=== PATIENT | male | born 1955 | race Caucasian/White ===

== ENCOUNTER 2019-11-20 15:04 | Outpatient (CLI) | payer BC, SELFPAY ==
--- NOTE | 2019-11-20 15:05 | ECG_ITS ---
Measurements Intervals [place] Rate: 76 P: 5 ME: 158 QRS: -6 QRSD: 89 T: 13 QT: 348 QTc: 394 Interpretive Statements SINUS RHYTHM VOLTAGE CRITERIA FOR LVH BASELINE ARTIFACT- I, II, III, AVR, AVL, AVF BORDERLINE ECG Electronically Signed On 11-20-2019 15:26:04 TURN OUT by Ge Mendez D.O.
[2019-11-20 15:32] LABS: Blood Urea Nitrogen 12 mg/dL (9-20); Calcium 8.8 mg/dL (8.4-10.2); Carbon Dioxide 27 mmol/L (22-30); Chloride 102 mmol/L (98-107); Estimated Glomerular Filt Rate > 60; Glucose 146 mg/dL (75-110); Potassium 3.8 mmol/L (3.4-5.0); Sodium 142 mmol/L (137-145)
== END 2019-11-20 15:05 | disposition home or self-care (01) ==
PROVIDERS: Anesthesiology; PCP Family Medicine; Visit Provider Urology
DX: Z51.81 Encounter for therapeutic drug level monitoring (principal); I10 Essential (primary) hypertension
CPT/HCPCS: 36415; 80048; 93005

== ENCOUNTER 2019-11-28 02:15 | Day surgery (SDC) | payer BC, SELFPAY ==
[2019-11-15 12:54] VITALS: BMI 40.8
--- NOTE | 2019-11-27 13:46 | WPDANESEPPF ---
Anes - Initial Pre Proc Eval Procedure: Operation Date: 11/28/19 07:30 Proposed Procedures p Right Hydrocelectomy - Scott Jones MD Date/Time: 11/27/19 13:46 Surgeon: Scott Jones MD Pre Op Diagnosis: Right Hydrocele Patient Data Age: 64 Gender: M Height: 1.78 m Weight: 129.27 kg Allergies Allergy/AdvReac Type Severity Reaction Status Date / Time NSAIDS (Non-Steroidal AdvReac Unknown ULCER Verified 11/27/19 15:43 Anti-Inflamma Home Medications Medication Instructions Recorded Confirmed Type ramipril 10 mg capsule 10 mg PO DAILY 10/29/19 11/28/19 History aspirin 81 mg tablet,delayed 81 mg PO DAILY 11/08/19 11/28/19 History release furosemide 20 mg tablet 20 mg PO DIRECTED PRN 11/08/19 11/28/19 History tamsulosin 0.4 mg capsule 0.4 mg PO DAILY 11/08/19 11/28/19 History calcium carbonate-vitamin D3 1 tablet PO DAILY 11/15/19 11/28/19 History [Calcium 600 + D(3)] finasteride 5 mg PO DAILY 11/15/19 11/28/19 History ECG: Date of Service: 11/20/19 Procedure(s): CA 12 lead EKG Accession Number(s): [id number] cc: ~ Measurements Intervals [place] Rate: 76 P: 5 TN: 158 QRS: -6 QRSD: 89 T: 13 QT: 348 QTc: 394 Interpretive Statements SINUS RHYTHM VOLTAGE CRITERIA FOR LVH BASELINE ARTIFACT- I, II, III, AVR, AVL, AVF BORDERLINE ECG Electronically Signed On 11-20-2019 15:26:04 CUT IN STATION OPERATOR by Ge Mendez D.O. Dictated By: Ge Mendez DO 11/20/19 1531 Patient hx anesthesia problems: none Family hx anesthesia problems: none PMFSH Past Medical History Medical History (Updated 11/27/19 @ 16:46 by Dalton Figueroa MD) Essential (primary) hypertension Fatty liver IFG (impaired fasting glucose) Mild intermittent asthma without complication Mixed hyperlipidemia Morbid obesity with BMI of 40.0-44.9, adult Multinodular goiter GOGO on CPAP Social History Social History (Updated 11/27/19 @ 15:45 by Lee Ann Sofia) Smoking packs per day: 1 Smoking cigarettes per day: 20.0 Years smoked: 6 Smoking pack-years: 6.00 Smoking status: Former smoker Tobacco type: cigarettes Second hand tobacco smoke exposure: No Smoking end date: 09/25/76 Alcohol intake: never Substance use: never Substance use type: does not use Gender identity (if verbalized by the patient): Male Anes - Eval Final PreProcedure Day of Procedure 11/27/19 13:46 Patient weight: morbidly obese Heart: regular rate and rhythm Lungs: clear to auscultation and normal air movement Airway: Mallampati scale class II Neurological: alert and oriented Last oral intake: >/= 8 hours ASA classification: III Emergent: no Anesthetic plan: proceed Anesthesia type and monitoring: general LMA Informed Consent: The patient's anesthetic plan and its attendant risks and benefits were discussed with the patient/family/POA. Questions were solicited and answers provided to the satisfaction of the patient/family/POA.
[2019-11-28] VITALS (7 sets, daily range): BP systolic 150–172; BP diastolic 71–84; PULSE 86–116; RESP 16–20; TEMP 36.1; O2SAT 96–98
[2019-11-28] MEDS: LACTATED RINGERS 1,000 ML 30 ML IV CONT (06:35)
--- NOTE | 2019-11-28 06:36 | WPDHPUPDATE1 ---
History and Physical Update Update Date/Time: 11/28/19 06:36 History and Physical has been reviewed, including an updated exam of the patient. There are NO changes in the patient's condition. Risks, benefits, and alternatives have been discussed and questions answered. Patient agrees to proceed with procedure.
[2019-11-28] MEDS: ceFAZolin 3 GM/D5W 100 ML 100 ML IVPB (07:20)
[2019-11-28] MEDS: LIDO 1%/EPINEPHRINE 1:100,000 20 ML VIAL 10 ML INFILTRATE (07:45)
--- NOTE | 2019-11-28 08:00 | PM.PROC ---
Procedure Note - Detailed Date of procedure: 11/28/19 Pre-op diagnosis: Right Hydrocele Post-op diagnosis: same Procedure performed: Right hydrocelectomy Description of procedure: The patient was brought to the operative suite where he was prepped and draped in routine sterile fashion while in a supine position after the uneventful induction of a general LMA anesthetic. An incision was made in the median raphe of the scrotum and dissection was carried into the right tunica vaginalis. Clear, straw-colored fluid was drained. The testicle was examined and found to be both visibly and palpably normal. The tunica was everted in a bottle-neck fashion using a running 4-0 chromic. The testicle was restore returned to an orthotopic positioned. The dartos muscle was closed with a running 4-0 chromic and the skin was likewise closed with a running 4-0 chromic. Estimated blood loss throughout this procedure was 3cc . Patient tolerated the procedure well and was taken to the recovery room in good condition. Anesthesia: GLMA Surgeon: Scott Jones MD Grades 1 Thru 5 Teacher: JUANITA Garcia Estimated blood loss (mL): 3 Drains: No Packing: No Pathology: none sent Complications: No immediate complications Condition: stable Disposition: PACU
== END 2019-11-28 09:16 | disposition home or self-care (01) ==
PROVIDERS: PCP Family Medicine; Visit Provider Urology
PROC: (CPT 55040; principal; 2019-11-28 07:30)
DX: N43.2 Other hydrocele (principal); I10 Essential (primary) hypertension; E78.2 Mixed hyperlipidemia; G47.33 Obstructive sleep apnea (adult) (pediatric); K76.0 Fatty (change of) liver, not elsewhere classified; J45.20 Mild intermittent asthma, uncomplicated; E04.2 Nontoxic multinodular goiter; E66.01 Morbid (severe) obesity due to excess calories; Z68.39 Body mass index [BMI] 39.0-39.9, adult; Z87.891 Personal history of nicotine dependence
CPT/HCPCS: 55060; A9270; J0690; J1100; J2250; J2370; J2405; J2704; J3010; J7120

== ENCOUNTER 2022-09-14 07:50 | Outpatient (CLI) | payer MEDICARE, OTHER, SELFPAY ==
--- NOTE | ~2022-09-14 | US_ITS ---
Ultrasound of the abdominal aorta CLINICAL HISTORY: Cardiovascular disorder, screening for aneurysm, hypertension TECHNIQUE: Transabdominal sonographic imaging of the abdominal aorta was performed. FINDINGS: No evidence for abdominal aortic aneurysm. Proximal abdominal aorta measures 2.6 cm in exte nt transverse diameter. Mid abdominal aorta measures 2.2 cm in maximum transverse diameter. Distal ab dominal aorta measures 1.8 cm in maximum transverse diameter. Aortic bifurcation unremarkable. IMPRESSION: No evidence of abdominal aortic aneurysm. Reviewed, dictated and finalized at location M. TESTER
--- NOTE | ~2022-09-14 | US_ITS ---
Thyroid ultrasound. Clinical History: Multinodular goiter, nontoxic Findings: Real-time sonography of the thyroid gland was performed. The right lobe measures 5.6 x 2.2 x 2.9 cm. The left lobe measures 4.7 x 1.8 x 1.6 cm. The isthmus is 5 mm in AP diameter. There is a 1.1 x 0.8 x 0.9 cm probably densely calcified shadowing nodule at the right mid to upper p ole. There is a 1.6 x 1.0 x 1.4 cm mixed solid and cystic nodule at the right mid to lower pole. Ther e is a 1.9 x 1.7 x 1.7 cm solid, somewhat heterogeneous nodule at the posterior aspect of the right m idpole. There is a 1.9 x 0.9 x 1.2 cm solid, somewhat heterogeneous nodule at the left mid to upper pole. The re is an additional 1.1 x 0.9 x 1.3 cm solid, heterogeneous nodule at the left lower pole. Impression: Multiple thyroid nodules, as detailed above. The largest nodules bilaterally (measuring 1.9 cm in max imum diameter each) are moderately suspicious (TR-4), and given size, FNA of these 2 nodules is recom mended. Reviewed, dictated and finalized at location M. ER OPERATOR Impression: Multiple thyroid nodules, as detailed above. The largest nodules bilaterally (m easuring 1.9 cm in maximum diameter each) are moderately suspicious (TR-4), and given size, FNA of these 2 nodules is recommended.
== END 2022-09-14 07:51 | disposition home or self-care (01) ==
PROVIDERS: PCP Family Medicine; Visit Provider Family Medicine
DX: Z13.6 Encounter for screening for cardiovascular disorders (principal); E04.2 Nontoxic multinodular goiter
CPT/HCPCS: 76536; 76706

== ENCOUNTER → 2023-05-11 08:07 | Outpatient (CLI) | payer MEDICARE, SELFPAY ==
--- NOTE | ~2023-05-11 | XR_ITS ---
EXAMINATION: XR_KNEE1-2VLT_CR, XR_KNEE1-2VRT_CR DATE: 05/11/2023 08:36 INDICATION: Bilateral knee pain TECHNIQUE: 1. Weight bearing anteroposterior and lateral views of the left knee were obtained. 2. Weight bearing anteroposterior and lateral views of the right knee were obtained. COMPARISON: None. FINDINGS: No fracture of either knee. Severe joint space narrowing at the lateral compartment of the left knee resulting in 14 degree left-sided genu valgus. There is moderate joint space narrowing at the medial compartment of the right knee resulting in 3 degree right-sided genu varus. Small marginal osteophyte s at the medial compartment left knee and lateral compartment of the right knee. Mild to moderate elmira nt space narrowing at the bilateral patellofemoral compartments with small marginal osteophytes in th e right and moderate-sized marginal osteophytes on the left. Small bilateral knee joint effusions. So ft tissues are otherwise unremarkable. IMPRESSION: 1. Tricompartmental osteoarthritis of both knees, severe at the lateral compartment of the left knee and moderate severity at the medial compartment of the right knee. Reviewed, dictated and finalized at location A. IMPRESSION: 1. Tricompartmental osteoarthritis of both knees, severe at the lateral compart ment of the left knee and moderate severity at the medial compartment of the ri ght knee.
== END ==
PROVIDERS: PCP Family Medicine; Visit Provider Family Medicine
DX: M17.0 Bilateral primary osteoarthritis of knee (principal)
CPT/HCPCS: 73560

== ENCOUNTER 2023-10-04 07:57 | Outpatient (CLI) | payer MEDICARE, SELFPAY ==
[2023-10-04 09:39] LABS: Urine Cotinine NEGATIVE
[2023-10-04 09:43] LABS: Partial Thromboplastin Time 33.5 SECONDS (22.3-36.8); Prothrombin Time 13.3 Seconds (11.1-14.7)
[2023-10-04 09:45] LABS: Hemoglobin A1C 5.9 % (<5.7)
== END 2023-10-04 07:58 | disposition home or self-care (01) ==
LOC: ANHSURGERY 08:01
PROVIDERS: PCP Family Medicine; Visit Provider Orthopaedic Surgery
DX: M17.11 Unilateral primary osteoarthritis, right knee (principal); Z01.818 Encounter for other preprocedural examination
CPT/HCPCS: 80307; 82040; 83036; 85610; 85730; 87081

== ENCOUNTER 2023-10-18 03:49 | Day surgery (SDC) | payer MEDICARE, SELFPAY ==
[2023-10-04 08:07] VITALS: BMI 39.2
--- NOTE | 2023-10-04 08:41 | PC.NURSE ---
Report to the Outpatient Waiting Room, entrance under the green pavilion located off [facility], at time __0830 on date __10/18/23 . Planned Procedure Time: __1030 . Time changes happen often and if your time is changed the preop area will call you the afternoon before. - You and your visitor will be asked to self-screen and do not enter if you have any COVID symptoms. - A mask is optional within the hospital at this time. Patients may have clear liquids (water, carbonated beverages, clear teas, apple juice) until 3 hours prior to surgery(7:30 AM) with a maximum of 20 ounces. - No food from midnight until time of surgery - Infants may have breast milk until 4 hours before surgery, formula 6 hours prior to surgery. - Children will be allowed to drink immediately following surgery. If applicable, please bring a bottle or sippy cup to assist with drinking. Juice, water, soda, and popsicles are readily available. For infants on formula, please bring formula the day of surgery. Pacifiers are allowed. Take the following medications with a SIP of water the morning of surgery: ____CARVEDILOL DO NOT STOP ANY OF YOUR OTHER PRESCRIPTION MEDICATIONS PRIOR TO SURGERY ?EXCEPT THE FOLLOWING Medications to discontinue per physician PT STATES HOLD ASPIRIN AND ALEVE 7 DAYS PRE OP PER DR SAMUEL_.LAST DOSE 10/10/23 MAY TAKE TYLENOL IF NEEDED FOR PAIN. HOLD VITAMINS 3 DAYS PRE OP .LAST DOSE 10/14/23 Please no make-up, nail venezuelan, hairspray, perfume, deodorant, or body powder the day of surgery. No jewelry (including any body piercings) or valuables the day of surgery, leave them at home. Please take a shower or bath the night before, or the morning of, surgery with an antibacterial soap. Wear comfortable, loose fitting clothing. Children are encouraged to wear pajamas. - Jewelry must be removed prior to entering the operating room. Rings and piercings that are not removed may be cut off. - The hospital will not accept responsibility for valuables. - Please leave all valuables, including medications, at home the day of surgery. If you are going home after surgery, a licensed rolloff truck driver must drive you home. - NO public transportation without another adult if you receive anesthesia. - We recommend that an adult stay with you for 24 hours following discharge. - We also recommend that you do not drive, make important decision, drink alcoholic beverages, or take any drugs that were not prescribed by your health care provider for at least 24 hours after your discharge time. For Pediatric surgeries, we recommend two adults accompany the child home. Follow any additional instructions given to you from your surgeon. If you or anyone in your household have experienced Covid symptoms in the past week, please notify your surgeon or the nurse liaison at the phone number below for possible testing. VERBAL AND WRITTEN instructions given to __PATIENT AND SPOUSE CONNIE and asked if any additional questions and then verbalized understanding. Patient advised to call surgeon office or pre surgery nurse liaison [phone] if any additional questions.
[2023-10-04 09:06] VITALS: BP 164/76; PULSE 72; RESP 18; TEMP 36.9; O2SAT 97
--- NOTE | 2023-10-17 13:50 | WPDANESEPPF ---
Anes - Initial Pre Proc Eval Procedure: Operation Date: 10/18/23 10:30 Proposed Procedures p Right Total Knee Arthroplasty - Nimesh Hong MD Date/Time: 10/17/23 13:50 Surgeon: Nimesh Hong MD Pre Op Diagnosis: Rt Knee Djd Patient Data Age: 68 Gender: M Height: 1.78 m Weight: 124.2 kg Last Vital Signs Temp 36.9 C 10/04/23 09:06 Pulse 72 10/04/23 09:06 Resp 18 10/04/23 09:06 BP 164/76 H 10/04/23 09:06 Pulse Ox 97 10/04/23 09:06 O2 Del Method Room Air 10/04/23 09:06 Allergies Allergy/AdvReac Type Severity Reaction Status Date / Time NSAIDS (Non-Steroidal AdvReac Unknown ULCER Verified 10/06/23 09:08 Anti-Inflamma Home Medications Medication Instructions Recorded Confirmed Type aspirin 81 mg tablet,delayed 81 mg PO DAILY 11/08/19 10/18/23 History release calcium carbonate 600 mg-vitamin 1 tablet PO EVERY OTHER DAY 11/15/19 10/18/23 History D3 5 mcg (200 unit) tablet (Calcium 600 + D(3)) ramipril 10 mg capsule 10 mg PO DAILY #90 caps 11/23/22 10/18/23 Rx naproxen sodium 220 mg capsule 220 mg PO PRN PRN Pain 08/21/23 10/18/23 History (Aleve) carvedilol 12.5 mg tablet 12.5 mg PO Q12H #60 tabs 09/07/23 10/18/23 Rx hydrochlorothiazide 25 mg tablet 25 mg PO DAILY 10/04/23 10/18/23 History Patient hx anesthesia problems: none Family hx anesthesia problems: none Results Review: All pre-operative results and documents have been reviewed as part of the pre-operative evaluation. [facility] Past Medical History Medical History (Updated 10/17/23 @ 13:50 by Wade Galloway DO) Asthma Essential (primary) hypertension Fatty liver IFG (impaired fasting glucose) Mild intermittent asthma without complication Mixed hyperlipidemia Morbid obesity with BMI of 40.0-44.9, adult Multinodular goiter Obesity GOGO on CPAP PONV (postoperative nausea and vomiting) Family History Family History Mother Patient's mother is in good health Sibling Patient's sister is in good health Social History Social History Smoking packs per day: 1 Smoking cigarettes per day: 20.0 Years smoked: 4 Smoking pack-years: 4.00 Smoking status: Former smoker Tobacco type: cigarettes Second hand tobacco smoke exposure: No Smoking end date: 09/25/75 Additional smoking assessment comments: DENIES ANY FORM OF TOBACCO USE Alcohol intake: current Drinks per week: 4 Substance use: never Substance use type: does not use Living arrangements: with family Occupation/Education: retired Gender identity (if verbalized by the patient): Male Spiritual care concerns: No Anes - Eval Final PreProcedure Day of Procedure 10/17/23 13:50 Patient weight: obese Heart: regular rate and rhythm Lungs: clear to auscultation Airway: Mallampati scale class III Neurological: alert and oriented Last oral intake: >/= 8 hours ASA classification: III Emergent: no Anesthetic plan: proceed Anesthesia type and monitoring: general LMA and standard monitoring Results Review: All pre-operative results and documents have been reviewed as part of the pre-operative evaluation. Informed Consent: The patient's anesthetic plan and its attendant risks and benefits were discussed with the patient/family/POA. Questions were solicited and answers provided to the satisfaction of the patient/family/POA.
[2023-10-18] VITALS (13 sets, daily range): BP systolic 138–181; BP diastolic 63–103; PULSE 74–94; RESP 12–20; TEMP 35.6–37.4; O2SAT 93–100
--- NOTE | ~2023-10-18 | XR_ITS ---
Right Knee Technique: Portable AP and crosstable lateral views Clinical History: Status post TKR Findings: Patient is status post total knee replacement. Orthopedic hardware alignment appears anatom ic. No hardware complication is evident. Subcutaneous emphysema and swelling is likely postoperative in nature. No acute osseous fracture is seen. Impression: Status post total knee replacement, without evidence of hardware complication. Reviewed, dictated and finalized at location . SERVICE ATTENDANT Impression: Status post total knee replacement, without evidence of hardware complication.
--- NOTE | 2023-10-18 07:16 | WPDHPUPDATE1 ---
History and Physical Update Update Date/Time: 10/18/23 07:16 History and Physical has been reviewed, including an updated exam of the patient. There are NO changes in the patient's condition. Risks, benefits, and alternatives have been discussed and questions answered. Patient agrees to proceed with procedure.
[2023-10-18] MEDS: ACETAMINOPHEN 500 MG TABLET 1000 MG PO (09:00)
[2023-10-18] MEDS: LACTATED RINGERS 1,000 ML 30 ML IV CONT ×2 (09:10→12:39)
[2023-10-18] MEDS: TRANEXAMIC ACID 1,000MG/ISO100 1,000 MG/100 ML BAG 200 MG IVPB (09:54)
--- NOTE | 2023-10-18 10:03 | WPDANESPNB ---
Anes - Peripheral Nerve Block Date/Time: 10/18/23 10:03 I have discussed with the patient/family/POA the placement of a peripheral nerve block for post-operative pain management, including associated risks, benefits, complications, and side effects. Alternative methods of post-operative analgesia were detailed. Questions were solicited and answers provided to the satisfaction of the patient/family/POA. Time-Out: A pre-procedural Time-Out was completed immediately before starting the procedure and confirmed: Patient Identification, Site, Procedure, Patient Position and the Availability of Requisite Equipment. Clinical Indications: Acute post-operative pain management requested by the operative surgeon. Nerve Block Insertion Note Anes-nerve block: adductor canal right Patient position: supine Skin prep: chlorhexidine Needle: 22 gauge, stimulating, insulated echogenic needle. Needle length: 80 mm Technique: ultrasound Injectate: bupivacaine 0.5% with epi 5 mcg/ml (30cc - no epi) Observations: tolerated well Complications: none Procedure start time:: 1007 Procedure end time:: 1011
[2023-10-18] MEDS: SCOPOLAMINE 1 MG PATCH 1 PATCH TRANSDERM (10:06)
[2023-10-18] MEDS: ceFAZolin 2 GM/D5W 50 ML 2 GM/50 ML BAG IVPB ×2 (10:30→17:08)
[2023-10-18] MEDS: GENTAMICIN BONE CEMENT REFOBACIN 1 EACH TOPICAL (11:40)
[2023-10-18] MEDS: TRANEXAMIC ACID 1,000 MG/10 ML AMPUL 1000 MG IV PUSH (11:56)
--- NOTE | 2023-10-18 12:50 | P.OP_ITS ---
Procedure Note - Detailed Date of Procedure 10/18/23 Pre-op Diagnosis Rt Knee Djd Post-op Diagnosis Same Procedure Performed R TKA Surgeon Nimesh Hong MD Anesthesia General Description of Procedure THE RIGHT KNEE WAS PREPPED AND DRAPED IN THE STERILE FASHION. THERE WAS A 10 DEGREE FLEXION CONTRACTURE. A MIDLINE SKIN INCISION WAS MADE. A MEDIAL PARAPATELLAR ARTHROTOMY WAS MADE. THE PATELLA WAS EVERTED. AN INTRAMEDULLARY JOSE G WAS PLACED IN THE FEMUR. A DISTAL FEMORAL CUT WAS MADE IN 5 DEGREES OF ROBERTH KAROL REMOVING APPROXIMATELY 9 MM OF BONE FROM THE DISTAL FEMUR. THE FEMUR WAS SIZED TO 67.5. A 67.5 FEMORAL CUTTING BLOCK WAS PLACED IN 3 DEGREES OF EXTERNAL ROTATION AND IN ALIGNMENT WITH LYNNETTE'S LINE AND THE TRANSEPICONDYLAR AXIS. ANTERIOR POSTERIOR AND CHAMFER CUTS WERE MADE. THE CUTS WERE EXCELLENT. NEXT AN INTRAMEDULLARY CUTTING GUIDE WAS PLACED IN THE TIBIA. A TRANS TIBIAL CUT WAS MADE ALONG THE LONG AXIS OF THE TIBIA. APPROXIMATELY 10 MM OF BONE WAS REMOVED FROM THE HIGH SIDE OF THE TIBIA. THE TIBIA WAS THEN PLANED TO A SMOOTH SURFACE. POSTERIOR FEMORAL OSTEOPHYTES WERE REMOVED FROM THE FEMORAL CONDYLES. A 75 TIBIAL TRIAL WAS PLACED IN ALIGNMENT WITH THE 1/3 MEDIAL ASPECT OF THE TIBIAL TUBERCLE. THEN A 67.5 FEMORAL TRIAL COMPONENT WAS PLACED. BOTH HAD EXCELLENT FITS. EVENTUALLY A 10 MM CR POLYETHYLENE TRIAL COMPONENT WAS PLACED. THE KNEE WAS TAKEN THROUGH A RANGE OF MOTION. THE KNEE CAME OUT TO FULL EXTENSION. THERE WAS NO ABNORMAL TILT TO THE PATELLA. THERE WAS GOOD A/P AND VARUS/VALGUS STABILITY. THERE WAS NO EXCESSIVE ROLL BACK WITH FLEXION. THE TRIAL COMPONENTS WERE REMOVED. THEN A 67.5 FEMORAL COMPONENT AND 75 TIBIAL COMPONENT WITH A 10 CR POLYETHYLENE COMPONENT WERE CEMENTED INTO PLACE. ONCE THE CEMENT WAS HARD THE KNEE WAS TAKEN THROUGH A ROM AGAIN AND FOUND TO BE STABLE WITH NO PATELLA TILT NO EXCESSIVE ROLL BACK WITH FLEXION AND GOOD STABILITY WITH COMPLETE AND FULL EXTENSION. THE KNEE WAS IRRIGATED WITH STERILE BETADINE AND WATER FOR ABOUT 3 MINUTES. THE BLEEDERS WERE CAUTERIZED. THE ARTHROTOMY WAS REPAIRED WITH NUMBER 1 VICRYL. THE SUB CUTANEOUS LAYER WITH 2-0 VICRYL AND THE SKIN WITH CINDY. THE WOUND WAS WASHED AND A STERILE DRESSING WAS APPLIED. PATIENT WAS EXTUBATED. Estimated Blood Loss -100 Pathology None sent Complications No immediate complications Condition Stable Disposition PACU
[2023-10-18] MEDS: fentaNYL CITRATE INJ (*CRX) 100 MCG/2 ML VIAL 25 MCG IV PUSH ×8 (12:59→13:37)
--- NOTE | 2023-10-18 14:15 | PC.NURSE ---
This patient, Cesar Lemus, was admitted to 3 [facility] Surg Room 320-01. Patient/family oriented to hospital policies and general routines including ID bracelet, bed and alarms, visiting hours, pain management, procedures, bathroom and other care routines, personal items, smoking policy, room service/diet, and visiting hours. Information on how to activate the Rapid Response Team has been discussed. Patient/Family are encouraged to report perceived risks to care and to ask questions if they do not understand what they are told or what they should do.
[2023-10-18] MEDS: KETOROLAC 15 MG/ML VIAL (*BKC) IV PUSH ×2 (14:36→17:08)
[2023-10-18] MEDS: ramipriL 5 MG CAPSULE 10 MG PO (14:37)
[2023-10-18] MEDS: oxyCODONE/ACETAMINOPHEN (*CRX) 5-325 MG TABLET 1 TABLET PO ×2 (15:46→20:23)
[2023-10-18] MEDS: carvediloL 12.5 MG TABLET PO (17:06)
[2023-10-18] MEDS: SENNA/DOCUSATE SODIUM TABLET 2 TAB PO (17:06)
[2023-10-18] MEDS: FAMOTIDINE 20 MG TABLET PO (20:22)
[2023-10-18] MEDS: ASPIRIN 325 MG ENTERIC TABLET PO (20:22)
[2023-10-19] VITALS: BP 133/58; PULSE 85; RESP 16; TEMP 36.1; O2SAT 96
[2023-10-19] MEDS: KETOROLAC 15 MG/ML VIAL (*BKC) IV PUSH ×2 (00:14→06:13)
[2023-10-19] MEDS: ceFAZolin 2 GM/D5W 50 ML 2 GM/50 ML BAG IVPB ×2 (02:51→09:11)
[2023-10-19 04:00] VITALS: BP 129/59; PULSE 66; RESP 16; TEMP 36.2; O2SAT 98
[2023-10-19 06:45] LABS: Basophils Percent Auto 0.2 % (0.2-1.2); Eosinophils Percent Auto 0.1 % (0-4.4); Hematocrit 40.8 % (42.0-52.0); Hemoglobin 13.2 g/dL (14.0-18.0); Immature Granulocyte Absolute 0.09 K/mm3 (0.00-0.031); Immature Granulocyte Percent A 0.6 % (0-0.5); Lymphocytes Absolute Auto 1.51 K/mm3 (0.9-3.2); Lymphocytes Percent Auto 9.7 % (18.3-44.2); Mean Corpuscular HGB Conc 32.4 g/dl (32-36); Mean Corpuscular Hemoglobin 28.1 pg (26-34); Mean Corpuscular Volume 86.8 fl (80-100); Mean Platelet Volume 9.9 fl (7.4-10.4); Monocytes Percent Auto 6.4 % (2.6-8.5); Neutrophils Absolute Auto 12.9 K/mm3 (1.3-6.7); Platelet Count Result 254 k/mm3 (150-375); Red Cell Distribution Width 13.6 % (11.5-14.5); White Blood Count 15.6 K/mm3 (4.5-10.0)
[2023-10-19 07:11] LABS: Anion Gap 8 mmol/L (8-16); Blood Urea Nitrogen 21 mg/dL (9-20); Calcium 9.3 mg/dL (8.4-10.2); Carbon Dioxide 24 mmol/L (22-30); Chloride 104 mmol/L (98-107); Estimated CRCL calculation 81 ml/min; Estimated Glomerular Filt Rate > 60; Glucose 152 mg/dL (65-110); Potassium 4.2 mmol/L (3.4-5.0); Sodium 136 mmol/L (137-145)
[2023-10-19 08:00] VITALS: BP 163/61; PULSE 72; RESP 22; TEMP 36.7; O2SAT 97
[2023-10-19] MEDS: ACETAMINOPHEN 500 MG TABLET 1000 MG PO (09:00)
[2023-10-19 09:03] VITALS: PULSE 81
[2023-10-19] MEDS: carvediloL 12.5 MG TABLET PO (09:03)
[2023-10-19] MEDS: FAMOTIDINE 20 MG TABLET PO (09:05)
[2023-10-19] MEDS: ramipriL 5 MG CAPSULE 10 MG PO (09:06)
[2023-10-19] MEDS: SENNA/DOCUSATE SODIUM TABLET 2 TAB PO (09:07)
[2023-10-19] MEDS: ASPIRIN 325 MG ENTERIC TABLET PO (09:07)
[2023-10-19] MEDS: polyethylene glycoL 3350 17 GM POWD.PACK PO (09:07)
--- NOTE | 2023-10-19 09:26 | PM.PNORT ---
Progress Note: A&P Assessment and Plan (1) S/P total knee arthroplasty: Qualifiers: Laterality: right Qualified Code(s): Z96.651 - Presence of right artificial knee joint Code(s): Z96.659 - Presence of unspecified artificial knee joint Status: Acute Assessment and Plan: POD #1 : Right TKA Continue PT/OT. WBAT. Walker. HIGH FALL RISK. Continue pain control. Ice Knee. Protect skin. DVT prophylaxis with Aspirin. SCDs. Incentive Spirometry Use reviewed. Monitor Dressing. Change prior to discharge. Bowel Regimen. Dispo: Home with Home Health pending progress with PT/OT Time Spent With Patient Time: Reviewed history, exam, radiographs and current labs with attending MD and covering surgeon, Dr. Hong, who agrees with current plan as indicated above. No further recommendations from Dr. Hong at this time. Subjective Subjective Date/Time Seen: 10/19/23 09:26 Post Op day: 1 Interval history: POD #1: Right TKA Patient doing very well. Pain well controlled. Working well with PT/OT. Ready for discharge home. Review of Systems Review of Systems: All systems reviewed & are unremarkable except as noted in HPI and below Constitutional: Constitutional: Denies fever(s) and Denies headache(s) ENT: Denies headache(s) Cardiovascular: Cardiovascular: Denies chest pain, Denies diaphoresis, Denies palpitations and Denies dyspnea Respiratory: Respiratory: Denies dyspnea Gastrointestinal: Gastrointestinal: Denies abdominal pain, Denies constipation, Denies nausea and Denies vomiting Genitourinary: Genitourinary: Denies dysuria and Reports nocturia Musculoskeletal: Musculoskeletal: Reports arthralgias (Right Knee ) and Reports joint swelling (Right Knee ) Neurologic: Denies headache(s) Endocrine: Endocrine: Denies palpitations Exam Const: General: comfortable and no acute distress Resp: Effort & Inspection: normal respiratory effort Cardio: Rate: regular rate Rhythm: regular rhythm GI: GI Palp: Yes Soft to palpation, No Tenderness to palpation present (GI) and No Guarding due to palpation present (GI) Skin: General skin exam: wounds noted Wounds: wounds noted Other: Incision c/d/i. No surrounding redness/warmth. No hematoma. Mild ecchymosis. No wound dehiscence Neuro: Cognition (Neuro): normal cognition Other: NV intact aside from block. Moves toes. Sensation intact to light touch. +ankle dorsiflexion/plantarflexion. Extrem: Right lower extremity: normal to inspection, knee Details: tenderness (diffuse, mild ) Location: of the patella, swelling (diffuse, consistent with surgical intervention ), abnormal ROM Details: pain with active ROM during, pain with passive ROM during and with range as follows (limited due to recent surgical intervention ); able to extend lower leg actively and ecchymosis (mild ), lower leg (Negative Allyssa's Sign ) Details: normal to inspection; no erythema and no tenderness, ankle (+ankle dorsiflexion/plantarflexion ) Details: normal to inspection, no edema and normal ROM; no tenderness, no swelling and no ecchymosis and foot Details: normal capillary refill, normal to inspection, vascular exam Details: dorsalis pedis pulse present and motor-sensory exam Details: light-touch normal; no tenderness Left lower extremity: normal to inspection Psych: Mental Status: mental status grossly normal Objective Data Vital Signs Vital Signs: Vital Signs - 24 hr 10/18/23 12:39 10/18/23 12:50 10/18/23 13:05 Temperature 37.4 C Pulse Rate 83 88 80 Respiratory Rate 14 18 12 Blood Pressure 176/103 H 167/83 H 178/83 H Pulse Oximetry 98 97 94 Oxygen Delivery Simple Face Mask Simple Face Mask Simple Face Mask Oxygen Flow Rate 8 8 8 10/18/23 13:20 10/18/23 13:24 10/18/23 13:35 Temperature Pulse Rate 92 94 Respiratory Rate 18 18 Blood Pressure 181/84 H 138/98 H Pulse Oximetry 100 94 94 Oxygen Delivery Simple Face Mask Room Air Room Air
--- NOTE | 2023-10-19 09:30 | PM.DS ---
DS: Admitting Diagnosis Discharge Date 10/19/2022 Admitting Diagnosis Right Knee DJD DS: Discharge Diagnosis Discharge Diagnosis (1) S/P total knee arthroplasty: Qualifiers: Laterality: right Qualified Code(s): Z96.651 - Presence of right artificial knee joint Code(s): Z96.659 - Presence of unspecified artificial knee joint Status: Acute Assessment and Plan: POD #1 : Right TKA Continue PT/OT. WBAT. Walker. HIGH FALL RISK. Continue pain control. Ice Knee. Protect skin. DVT prophylaxis with Aspirin. SCDs. Incentive Spirometry Use reviewed. Monitor Dressing. Change prior to discharge. Bowel Regimen. Dispo: Home with Home Health pending progress with PT/OT DS: Summary Hospital Course Reason for hospitalization: Right TKA Hospital Course: 68 year old male admitted s/p Right TKA for postoperative medical management, pain control and mobilization with PT/OT. Patient progressed well with PT/OT. Pain and vitals remained stable throughout. The patient has been cleared to be discharged home with home health at this time. All discharge care instructions reviewed at depth. New medications reviewed. Follow up planned for 3 weeks in the outpatient orthopedic clinic with Dr. Hong. Dr. Hong in agreement with safe discharge at this time. Status at Discharge Functional status at discharge: uses cane/walker Overall status at discharge: patient is progressing back to baseline Time Spent with Patient Time attestation: Total time spent providing and/or coordinating discharge services: Exam Const: General: comfortable and no acute distress Resp: Effort & Inspection: normal respiratory effort Cardio: Rate: regular rate Rhythm: regular rhythm Skin: General skin exam: wounds noted Wounds: wounds noted Other: Incision c/d/i. No surrounding redness/warmth. No hematoma. Mild ecchymosis. No wound dehiscence Neuro: Cognition (Neuro): normal cognition Other: NV intact aside from block. Moves toes. Sensation intact to light touch. +ankle dorsiflexion/plantarflexion. Extrem: Right lower extremity: normal to inspection, knee Details: tenderness (diffuse, mild ) Location: of the patella, swelling (diffuse, consistent with surgical intervention ), abnormal ROM Details: pain with active ROM during, pain with passive ROM during and with range as follows (limited due to recent surgical intervention ); able to extend lower leg actively and ecchymosis (mild ), lower leg (Negative Allyssa's Sign ) Details: normal to inspection; no erythema and no tenderness, ankle (+ankle dorsiflexion/plantarflexion ) Details: normal to inspection, no edema and normal ROM; no tenderness, no swelling and no ecchymosis and foot Details: normal capillary refill, normal to inspection, vascular exam Details: dorsalis pedis pulse present and motor-sensory exam Details: light-touch normal; no tenderness Left lower extremity: normal to inspection Psych: Mental Status: mental status grossly normal DS: Data Data Completed and Pending Labs on day of discharge: Labs from last 24 hours 10/19/23 10/18/23 06:34 08:55 WBC 15.6 H RBC 4.70 Hgb 13.2 L Hct 40.8 L MCV 86.8 MCH 28.1 MCHC 32.4 RDW 13.6 Plt Count 254 MPV 9.9 Immature Gran % (Auto) 0.6 H Neut % (Auto) 83.0 H Lymph % (Auto) 9.7 L [place] % (Auto) 6.4 Eos % (Auto) 0.1 Baso % (Auto) 0.2 Lymph # (Auto) 1.51 [place] # (Auto) 1.0 H Eos # (Auto) 0.0 Baso # (Auto) 0.0 Abs Immat Gran (auto) 0.09 H Absolute Neuts (auto) 12.9 H Absolute Nucleated RBC 0.0 Nucleated RBC % 0.0 Sodium 136 L Potassium 4.2 Chloride 104 Carbon Dioxide 24 Anion Gap 8 BUN 21 H Creatinine 1.00 Estim Creat Clear Calc 81 Estimated GFR > 60 Glucose 152 H Calcium 9.3 Blood Type O Positive Antibody Screen Negative Discharge Plan Discharge Patient Disposition: Home Health Service Discharge Instructions: [facility]
[2023-10-19 10:28] VITALS: O2SAT 98
== END 2023-10-19 11:25 | disposition home health service (06) ==
LOC: ANHSURGERY 10:08 → ANH3MEDSUR 14:15
PROVIDERS: PCP Family Medicine; Visit Provider Orthopaedic Surgery
PROC: (CPT 27447; principal; 2023-10-18 10:30)
DX: M17.11 Unilateral primary osteoarthritis, right knee (principal); G89.18 Other acute postprocedural pain; I10 Essential (primary) hypertension; E78.2 Mixed hyperlipidemia; G47.33 Obstructive sleep apnea (adult) (pediatric); K76.0 Fatty (change of) liver, not elsewhere classified; Z79.82 Long term (current) use of aspirin; E66.9 Obesity, unspecified; Z68.37 Body mass index [BMI] 37.0-37.9, adult; Z87.891 Personal history of nicotine dependence
CPT/HCPCS: 27447; 64447; 36415; 73560; 80048; 80307; 82040; 83036; 85025; 85610; 85730; 86850; 86900; 86901; 87081; 97110; 97161; 97165; 97530; 97535; A9270; C1713; C1776; J0171; J0690; J1100; J1170; J1200; J1885; J2250; J2270; J2405; J2704; J2795; J3010; J7120

== ENCOUNTER 2023-12-27 14:45 | Outpatient (RCR) | payer MEDICARE, SELFPAY ==
--- NOTE | 2023-11-29 11:43 | PTOPEVAL1 ---
Assessment and note entered by Rogelio Pelayo Evaluation Information Assessment Status Evaluation Diagnosis s/p R TKA Onset 10/18/23 Subjective Information Pt. reports he underwent right TKA on 10/18/23. He had been participating in HH therapy. He reports he was suppose to start OP PT awhile ago, but had recently developed Covid. He reports that he is currently using a cane and has recently returned to driving. He states that he has a constant aching that he rates 2/10 at the right knee. He reports that he enjoys taking a bath, but cannot get down low enough to get into the tub. he reports that he has 1 step at his home and has not had to do multiple stairs. He reports that prior to surgery he was able to complete his own yardwork without complication. He reports that pain will wake him at night. He states that his goal for PT is to be able to walk normal with less pain. Reported Pain Level Pain Score 2: Self Report Assessment PT Clinical Summary Pt. is a 68 year old male 5-6 weeks post right TKA . He presents with notable edema at the right knee, impaired right knee ROM, impaired l.e. strength, impaired gait and functional decline. Continued skilled PT is indicated in order to improve these areas to allow for improved comfort with IADL's and to establish normal gait. Plan of Care Interventions Electrical Stimulation,Gait Training,Hot Pack/Cold Pack,Intermittent Compression,Manual Therapy, Neuro Re-education,Patient/Caregiver Education, Therapeutic Activities,Therapeutic Exercise PT Services Indicated Yes Treatment Frequency and 2x/week x 10 visits Duration These treatments will address the objective and functional deficits as defined above. The patient will be advanced safely and appropriately in order for the patient to progress towards his/her prior level of function. Additional exercises will be introduced and as well as a comprehensive home exercise program upon discharge, if needed, ?to ensure carryover of functional gains achieved in the clinic. This treatment plan has been reviewed and agreement upon by the patient.
--- NOTE | 2023-11-29 11:44 | OPREHPOC ---
Outpatient Therapy Plan of Care This is a Multidisciplinary Plan of Care that may contain components documented by all disciplines (PT, OT, and ST.) PT Problem 1 PT Problem #1 Knowledge Deficit PT Goal 1 Goal Independent with a HEP focusing on strength and mobility baptism Target Visit 2 PT Problem 2 PT Problem #2 Edema PT Goal 1 Goal Reduce right knee joint girth measurements to 43cm indicating decrease in edema Target Visit 6 PT Problem 3 PT Problem #3 Impaired Range of Motion PT Goal 1 Goal Pt. will achieve 0-120 degrees right knee active ROM in order to allow pt. to squat to the floor for functional activities. Target Visit 10 PT Problem 4 PT Problem #4 Impaired Functional Mobil PT Goal 1 Goal Pt. will present with less than 40% limitation on the LEFS indicating improved overall function. Target Visit 10 PT Problem 5 PT Problem #5 Impaired Gait PT Goal 1 Goal Pt. will complete the 6 minute walk test without an AD with equal right and left stance time accumulating a distance of 1000' or greater. Target Visit 10
--- NOTE | 2023-12-27 15:28 | PTOPDC ---
Assessment and note entered by Rogelio Pelayo Evaluation Information Assessment Status Discharge Diagnosis s/p R TKA Onset 10/18/23 Subjective Information Pt. reports that he continues to exercise at home. He is walking without an AD and has returned to driving. he reports that he is able to get out of the bathtub without help. He reports that he would like to be able to kneel, but feels the knee is too pain to kneel at this time. He reports he has no problem with sleeping at night. He states that he will continue with exercise and is ready for discharge. Reported Pain Level Pain Score 1: Self Report Pain Score 2: Self Report Assessment PT Clinical Summary Pt. has met the majority of goals established at the initial evaluation. He is encouraged to continue with his HEP and will be discharged from our care at this time. Plan of Care PT Services Indicated No
== END 2023-12-27 17:08 | disposition home or self-care (01) ==
LOC: ANHPT 14:45
PROVIDERS: PCP Family Medicine; Visit Provider Orthopaedic Surgery
DX: Z47.1 Aftercare following joint replacement surgery (principal); Z96.651 Presence of right artificial knee joint
CPT/HCPCS: 97016; 97110; 97116; 97161; 97530; 97750

== ENCOUNTER 2025-06-16 16:20 | Emergency (ER) | payer MEDICARE, SELFPAY ==
--- NOTE | ~2025-06-16 | XR_ITS ---
XR abdomen/kub 1V 06/16/2025 16:59 Indication: Low back pain Procedure: KUB Comparison: No prior studies for comparison. Findings: There are gallstones. Bowel gas pattern nonobstructive. No acute osseous abnormality. No renal stones identified. There are pelvic phleboliths. Impression: 1: Cholelithiasis. Reviewed, dictated and finalized at location O. Impression: 1: Cholelithiasis.
[2025-06-16 16:34] VITALS: BP 170/68; PULSE 84; RESP 16; TEMP 36.9; O2SAT 98
[2025-06-16 16:40] LABS: EDUAAPPEAR Clear; EDUABILI Negative (Negative); EDUABLOOD 1+ (Negative); EDUACOLOR1 Yellow; EDUAGLUCOSE Negative (Negative); EDUAKETONE Negative (Negative); EDUALEUKO Negative (Negative); EDUANITRATE Negative (Negative); EDUAPH 5.5; EDUAPROTEIN Negative (Negative); EDUASPGRAVITY 1.020; EDUAUROBILI 0.2
--- NOTE | 2025-06-16 16:42 | ED.BACK ---
HPI - Back Pain/Injury General Chief Complaint: Back Pain/Injury Stated Complaint: Back Pain/UTI Time Seen by Provider: 06/16/25 16:43 Source: patient Mode of arrival: ambulatory Limitations: no limitations History of Present Illness HPI Narrative: 69-year-old male presents with complaint of right-sided low back pain for the past 2 weeks. Pain worse with movement. Has been having to pull himself up out of bed in the mornings due to back spasms and tightness. Denies injury. Ambulatory with steady gait. No radiation of back pain. Reports today he began having pain all across low back. Pain is much worse. Took Aleve and rating pain a 8/10. Patient ambulatory with steady gait. Patient reports history of kidney stones. Denies urinary symptoms today. All systems reviewed and negative except as noted above. Related Data Home Medications ?Medication ?Instructions ?Recorded ?Confirmed ?Last Taken ?Type aspirin 81 mg tablet,delayed 81 mg PO DAILY 11/08/19 02/06/25 10/10/23 History release naproxen sodium 220 mg capsule 220 mg PO PRN PRN Pain 08/21/23 02/06/25 10/10/23 History (Aleve) hydrochlorothiazide 25 mg tablet 25 mg PO DAILY 10/04/23 02/06/25 10/17/23 History Allergies Allergy/AdvReac Type Severity Reaction Status Date / Time NSAIDS (Non-Steroidal AdvReac Unknown ULCER Verified 06/16/25 16:41 Anti-Inflamma PMF Past Medical History Medical History PONV (postoperative nausea and vomiting) Asthma Obesity IFG (impaired fasting glucose) Morbid obesity with BMI of 40.0-44.9, adult Essential (primary) hypertension Fatty liver Mild intermittent asthma without complication Mixed hyperlipidemia Multinodular goiter GOGO on CPAP Surgical History Surgical History S/P total knee arthroplasty RT TKA 10/18/2023 Family History Family History Mother Patient's mother is in good health Sibling Patient's sister is in good health Social History Social History Smoking packs per day: 1 Smoking cigarettes per day: 20.0 Years smoked: 4 Smoking pack-years: 4.00 Smoking status: Former smoker Tobacco type: cigarettes Second hand tobacco smoke exposure: No Smoking end date: 09/25/75 Additional smoking assessment comments: DENIES ANY FORM OF TOBACCO USE Alcohol intake: current Drinks per week: 2 Substance use: never Substance use type: does not use Do You Feel Safe in your Home?: Yes Lack of Transportation: No Lack of Food: Never True Current Housing: I Have Housing Concerned About Future Housing: No Difficulty Paying Gas/Electric Bills: No Difficulty Paying for Meds: No Currently Unemployed: No Education: Trade/Vocational Certificate Difficulty w/ Childcare or Family Care: No Living arrangements: with family Occupation/Education: retired Gender identity (if verbalized by the patient): Male Spiritual care concerns: No Comments At time of signature, agree with nursing past medical, surgical, social and family history. There is no relevant family history pertinent to the presenting complaint. Exam Narrative: GENERAL: This is a well-nourished, well-developed patient, in no apparent distress. HEAD: normocephalic, atraumatic. EYES: PERRL. Sclera clear/white. Vision is grossly intact. EARS: External ears normal NOSE: External nose normal NECK: Neck supple, non-tender without lymphadenopathy, masses or thyromegaly. CARDIOVASCULAR: Regular rate and rhythm without murmurs, gallops, or rubs. RESPIRATORY: Clear to auscultation. Breath sounds equal bilaterally. No wheezes, rales, or rhonchi. GASTROINTESTINAL: Abdomen soft, non-tender, nondistended. Bowel sounds are active. No hepato-splenomegaly, or palpable masses. No guarding. SKIN: warm, Dry, intact with no suspicious lesions or rash, good texture and turgor. NEURO: awake, alert, and oriented to person, place and time. There were no obvious focal neurologic abnormalities. EXTREMITIES: No joint tenderness, effusion, or edema noted. No calf tenderness. Negative Homans sign bilaterally. BACK: Generalized muscular tenderness to lumbar aspect. Lower extremity strength 5/5 bilaterally. Course Course Level of Care: Express Care Visit Vital Signs Vital signs: Vital Signs Temperature 36.9 C 06/16/25 16:34 Pulse Rate 84 06/16/25 16:34 Respiratory Rate 16 06/16/25 16:34 Blood Pressure 170/68 H 06/16/25 16:34 Pulse Oximetry 98 06/16/25 16:34 Temperature 36.9 C 06/16/25 16:34 Pulse Rate 84 06/16/25 16:34 Respiratory Rate 16 06/16/25 16:34 Blood Pressure 170/68 H 06/16/25 16:34 Pulse Oximetry 98 06/16/25 16:34 Reviewed MDM - Back Pain/Injury MDM Narrative Medical decision making narrative: urinalysis 1+ blood. UB negative for kidney stones. Does show gallstones which patient states that he is aware of. Patient is well-appearing, nontoxic. No pain distress. No neuro deficits. Will treat low-back pain with tramadol, baclofen and prednisone. Recommend follow-up with primary care physician. Differential Diagnosis Differential diagnosis: Likely lumbar radiculopathy, sciatica and strain of lumbar region Lab Data Labs: Lab Results 06/16/25 Range/Units 16:38 POC Urine Color Yellow POC Urine Clarity Clear POC Urine pH 5.5 POC Ur Specif [place] 1.020 POC Urine Protein Negative (Negative) POC Ur Glucose (UA) Negative (Negative) POC Urine Ketones Negative (Negative) POC Urine Blood 1+ (Negative) POC Urine Nitrite Negative (Negative) POC Urine Bilirubin Negative (Negative) POC Urine Urobilinogen 0.2 POC U Leukocyte Esteras Negative (Negative) Imaging Data My impression: agree with radiologist Radiologist's impression: XR abdomen/kub 1V 06/16/2025 16:59 Indication: Low back pain Procedure: KUB Comparison: No prior studies for comparison. Findings: There are gallstones. Bowel gas pattern nonobstructive. No acute osseous abnormality. No renal stones identified. There are pelvic phleboliths. Impression: 1: Cholelithiasis. Discharge Plan Discharge Clinical Impression: Low back pain Qualifiers: Chronicity: acute Back pain laterality: bilateral Sciatica presence: without sciatica Qualified Code(s): M54.50 - Low back pain, unspecified Patient Disposition: Home Condition: Stable Instructions: Acute Low Back Pain (ED) Additional Instructions: Take medications as prescribed. Baclofen and tramadol may cause drowsiness. Do not drive while taking these medications. Alternate between ice and heat. Do stretching exercises as tolerated. Follow-up with your primary care physician if symptoms are not improving. If you have severe back pain, unable to walk due to weakness to lower extremities, loss of bowel or bladder go to the ER. Patient Language: Malagasy Prescriptions: New baclofen 5 mg tablet 5 mg PO Q8H PRN (Reason: muscle spasm) Qty: 30 0RF prednisone 20 mg tablet 40 mg PO DAILY 5 Days Qty: 10 0RF tramadol 50 mg tablet 50 mg PO Q8H PRN (Reason: pain) Qty: 20 0RF No Action Repatha SureClick 140 mg/mL pen injector 140 mg subcut ONCE Qty: 1 0RF aspirin 81 mg tablet,delayed release (DR/EC) 81 mg PO DAILY naproxen sodium [Aleve] 220 mg capsule 220 mg PO PRN PRN (Reason: Pain) hydrochlorothiazide 25 mg tablet 25 mg PO DAILY albuterol sulfate 90 mcg/actuation HFA aerosol inhaler See Rx Instructions .ROUTE .COMPLEX Qty: 17 2RF Dose Instruction: USE 1 INHALATION EVERY 4 HOURS NEEDED FOR SHORTNESS OF BREATH OR WHEEZING Rx Instructions: USE 1 INHALATION EVERY 4 HOURS NEEDED FOR SHORTNESS OF BREATH OR WHEEZING carvedilol 12.5 mg tablet See Rx Instructions .ROUTE .COMPLEX Qty: 180 2RF Dose Instruction: TAKE 1 TABLET BY MOUTH EVERY 12 HOURS WITH A MEAL/FOOD Rx Instructions: TAKE 1 TABLET BY MOUTH EVERY 12 HOURS WITH A MEAL/FOOD ramipril 10 mg capsule 10 mg PO DAILY Qty: 90 2RF Follow-up/Referrals: Dalton Figueroa MD [Primary Care Provider, Family Practice]
== END 2025-06-16 17:28 | disposition home or self-care (01) ==
PROVIDERS: Emergency Provider Nurse Practitioner Family; PCP Family Medicine
DX: M54.50 Low back pain, unspecified (principal); K80.20 Calculus of gallbladder without cholecystitis without obstruction; Z87.891 Personal history of nicotine dependence; J45.909 Unspecified asthma, uncomplicated; E66.9 Obesity, unspecified; R73.01 Impaired fasting glucose; I10 Essential (primary) hypertension; K76.0 Fatty (change of) liver, not elsewhere classified; E78.2 Mixed hyperlipidemia; G47.33 Obstructive sleep apnea (adult) (pediatric); E66.01 Morbid (severe) obesity due to excess calories; Z68.36 Body mass index [BMI] 36.0-36.9, adult; Z96.651 Presence of right artificial knee joint
CPT/HCPCS: 74018; 81003; 99213; G0463

== ENCOUNTER 2025-09-24 00:19 | Day surgery (SDC) | payer MEDICARE, SELFPAY ==
[2025-08-28 15:03] VITALS: BMI 30.4
[2025-09-24 08:06] VITALS: BP 154/69; PULSE 77; RESP 18; TEMP 36.1; O2SAT 98; BMI 35.5
[2025-09-24] MEDS: LACTATED RINGERS 1,000 ML 150 ML IV CONT (08:19)
--- NOTE | 2025-09-24 09:21 | WPDANESEPPF ---
Anes - Initial Pre Proc Eval Procedure: Operation Date: 09/24/25 09:00 Proposed Procedures p Screening Colonoscopy - Shai Reece MD Date/Time: 09/24/25 09:21 Surgeon: Shai Reece MD Pre Op Diagnosis: Screening Patient Data Age: 70 Gender: M Height: 1.8 m Weight: 115.5 kg Last Vital Signs Temp 36.1 C L 09/24/25 08:06 Pulse 77 09/24/25 08:06 Resp 18 09/24/25 08:06 BP 154/69 H 09/24/25 08:06 Pulse Ox 98 09/24/25 08:06 O2 Del Method Room Air 09/24/25 08:06 Allergies Allergy/AdvReac Type Severity Reaction Status Date / Time NSAIDS (Non-Steroidal AdvReac Unknown ULCER Verified 09/24/25 08:04 Anti-Inflamma Home Medications ?Medication ?Instructions ?Recorded ?Confirmed ?Type aspirin 81 mg tablet,delayed 81 mg PO DAILY 11/08/19 09/24/25 History release naproxen sodium 220 mg capsule 220 mg PO PRN PRN Pain 08/21/23 08/28/25 History (Aleve) hydrochlorothiazide 25 mg tablet 25 mg PO DAILY 10/04/23 09/24/25 History albuterol sulfate 90 mcg/actuation See Rx Instructions .Route 02/28/24 08/28/25 Rx aerosol inhaler .COMPLEX #17 grams ramipril 10 mg capsule 10 mg PO DAILY #90 caps 01/27/25 09/24/25 Rx evolocumab 140 mg/mL subcutaneous 140 mg subcut ONCE #1 mL 02/06/25 08/28/25 Rx pen injector (Repatha SureClick) carvedilol 12.5 mg tablet See Rx Instructions .Route 09/22/25 09/24/25 Rx .COMPLEX #180 tabs Patient hx anesthesia problems: none Family hx anesthesia problems: none Results Review: All pre-operative results and documents have been reviewed as part of the pre-operative evaluation. [facility] Past Medical History Medical History PONV (postoperative nausea and vomiting) Asthma Obesity IFG (impaired fasting glucose) Morbid obesity with BMI of 40.0-44.9, adult Essential (primary) hypertension Fatty liver Mild intermittent asthma without complication Mixed hyperlipidemia Multinodular goiter GOGO on CPAP Surgical History Surgical History S/P total knee arthroplasty RT TKA 10/18/2023 Family History Family History Mother Patient's mother is in good health Sibling Patient's sister is in good health Social History Social History Smoking packs per day: 1 Smoking cigarettes per day: 20.0 Years smoked: 5 Smoking pack-years: 5.00 Smoking status: Former smoker Tobacco type: cigarettes Second hand tobacco smoke exposure: No Smoking end date: 09/25/75 Additional smoking assessment comments: DENIES ANY FORM OF TOBACCO USE Alcohol intake: current Drinks per week: 2 Substance use: never Substance use type: does not use Lack of Transportation: No Lack of Food: Never True Current Housing: I Have Housing Concerned About Future Housing: No Difficulty Paying Gas/Electric Bills: No Difficulty Paying for Meds: No Currently Unemployed: No Education: Trade/Vocational Certificate Difficulty w/ Childcare or Family Care: No Living arrangements: alone Occupation/Education: retired Gender identity (if verbalized by the patient): Male Spiritual care concerns: No Anes - Eval Final PreProcedure Day of Procedure 09/24/25 09:21 Patient weight: obese Heart: regular rate and rhythm Lungs: decreased breath sounds Airway: Mallampati scale class II Neurological: alert and oriented Last oral intake: >/= 8 hours ASA classification: III Emergent: no Anesthetic plan: proceed Anesthesia type and monitoring: general GIVS and standard monitoring Results Review: All pre-operative results and documents have been reviewed as part of the pre-operative evaluation. Informed Consent: The patient's anesthetic plan and its attendant risks and benefits were discussed with the patient/family/POA. Questions were solicited and answers provided to the satisfaction of the patient/family/POA.
[2025-09-24] MEDS: SIMETHICONE ORAL SUSPENSION 20 MG/0.3 ML 30 ML BOTTLE 0.6 ML IRRIGATION (09:31)
[2025-09-24 09:41] VITALS: BP 121/67; PULSE 73; RESP 15; O2SAT 97
[2025-09-24 09:51] VITALS: BP 138/76; PULSE 72; RESP 15; O2SAT 99
[2025-09-24 10:01] VITALS: BP 143/76; PULSE 72; RESP 20; O2SAT 97
--- NOTE | 2025-09-26 07:11 | PM.HPGS ---
History of Present Illness History of Present Illness Consent: Risks, benefits, and alternatives have been discussed and questions answered. Patient agrees to proceed with procedure. Chief complaint: Screening Narrative: Cesar Lemus is a 70 year old male who is here for screening colonoscopy. Review of Systems Review of Systems: All systems reviewed & are unremarkable except as noted in HPI and below Constitutional: Constitutional: Denies fever(s) and Denies headache(s) ENT: Denies headache(s) Cardiovascular: Cardiovascular: Denies chest pain, Denies diaphoresis, Denies palpitations and Denies dyspnea Respiratory: Respiratory: Denies dyspnea Gastrointestinal: Gastrointestinal: Denies abdominal pain, Denies constipation, Denies nausea and Denies vomiting Genitourinary: Genitourinary: Denies dysuria and Reports nocturia Musculoskeletal: Musculoskeletal: Reports arthralgias (Right Knee ) and Reports joint swelling (Right Knee ) Neurologic: Denies headache(s) Endocrine: Endocrine: Denies palpitations PMFSH Past Medical History Medical History PONV (postoperative nausea and vomiting) Asthma Obesity IFG (impaired fasting glucose) Morbid obesity with BMI of 40.0-44.9, adult Essential (primary) hypertension Fatty liver Mild intermittent asthma without complication Mixed hyperlipidemia Multinodular goiter GOGO on CPAP Surgical History Surgical History S/P total knee arthroplasty RT TKA 10/18/2023 Family History Family History Mother Patient's mother is in good health Sibling Patient's sister is in good health Social History Social History Smoking packs per day: 1 Smoking cigarettes per day: 20.0 Years smoked: 5 Smoking pack-years: 5.00 Smoking status: Former smoker Tobacco type: cigarettes Second hand tobacco smoke exposure: No Smoking end date: 09/25/75 Additional smoking assessment comments: DENIES ANY FORM OF TOBACCO USE Alcohol intake: current Drinks per week: 2 Substance use: never Substance use type: does not use Lack of Transportation: No Lack of Food: Never True Current Housing: I Have Housing Concerned About Future Housing: No Difficulty Paying Gas/Electric Bills: No Difficulty Paying for Meds: No Currently Unemployed: No Education: Trade/Vocational Certificate Difficulty w/ Childcare or Family Care: No Living arrangements: alone Occupation/Education: retired Gender identity (if verbalized by the patient): Male Spiritual care concerns: No Meds Home Medications and Allergies Home Medications ?Medication ?Instructions ?Recorded ?Confirmed ?Type aspirin 81 mg tablet,delayed 81 mg PO DAILY 11/08/19 09/24/25 History release naproxen sodium 220 mg capsule 220 mg PO PRN PRN Pain 08/21/23 08/28/25 History (Aleve) hydrochlorothiazide 25 mg tablet 25 mg PO DAILY 10/04/23 09/24/25 History albuterol sulfate 90 mcg/actuation See Rx Instructions .Route 02/28/24 08/28/25 Rx aerosol inhaler .COMPLEX #17 grams ramipril 10 mg capsule 10 mg PO DAILY #90 caps 01/27/25 09/24/25 Rx evolocumab 140 mg/mL subcutaneous 140 mg subcut ONCE #1 mL 02/06/25 08/28/25 Rx pen injector (Repatha SureClick) carvedilol 12.5 mg tablet See Rx Instructions .Route 09/22/25 09/24/25 Rx .COMPLEX #180 tabs Allergies Allergy/AdvReac Type Severity Reaction Status Date / Time NSAIDS (Non-Steroidal AdvReac Unknown ULCER Verified 09/24/25 08:04 Anti-Inflamma Exam Narrative: GENERAL: This is a well-nourished, well-developed patient, in no apparent distress. HEAD: normocephalic, atraumatic. EYES: PERRL. Sclera clear/white. Vision is grossly intact. EARS: External ears normal NOSE: External nose normal NECK: Neck supple, non-tender without lymphadenopathy, masses or thyromegaly. CARDIOVASCULAR: Regular rate and rhythm without murmurs, gallops, or rubs. RESPIRATORY: Clear to auscultation. Breath sounds equal bilaterally. No wheezes, rales, or rhonchi. GASTROINTESTINAL: Abdomen soft, non-tender, nondistended. Bowel sounds are active. No hepato-splenomegaly, or palpable masses. No guarding. SKIN: warm, Dry, intact with no suspicious lesions or rash, good texture and turgor. NEURO: awake, alert, and oriented to person, place and time. There were no obvious focal neurologic abnormalities. EXTREMITIES: No joint tenderness, effusion, or edema noted. No calf tenderness. Negative Homans sign bilaterally. BACK: Generalized muscular tenderness to lumbar aspect. Lower extremity strength 5/5 bilaterally. Assessment and Plan Assessment and plan (1) Encounter for screening colonoscopy: Code(s): Z12.11 - Encounter for screening for malignant neoplasm of colon Status: Acute Plan 70-year-old
== END 2025-09-24 10:12 | disposition home or self-care (01) ==
PROVIDERS: Internal Medicine Gastroenterology; PCP Family Medicine; Visit Provider Internal Medicine Gastroenterology
PROC: 0DJD8ZZ Inspection of Lower Intestinal Tract, Via Natural or Artificial Opening Endoscopic (ICD-10-PCS; CPT 45378; principal; 2025-09-24 09:00)
DX: Z12.11 Encounter for screening for malignant neoplasm of colon (principal); Z87.891 Personal history of nicotine dependence; E66.9 Obesity, unspecified; Z68.35 Body mass index [BMI] 35.0-35.9, adult
CPT/HCPCS: G0121; J2003; J2704; J7120